=== PATIENT | female | born 1965 | race Caucasian/White ===

== ENCOUNTER 2016-06-23 12:10 | Emergency (ER) | payer MEDICAID ==
[~2016-06-23] VITALS: Ht 160 cm; Wt 70.3 kg
[2016-06-23 12:21] VITALS: BP 116/81
== END 2016-06-23 13:21 | disposition home or self-care (01) ==
LOC: ER 12:11
DX: H66.011 Acute suppurative otitis media with spontaneous rupture of ear drum, right ear (principal)
CPT/HCPCS: 99283; A4606; Z7610